=== PATIENT | male | born 1945 | race Caucasian/White ===

== ENCOUNTER 2017-08-25 13:37 | Observation (INO) ==
[2017-08-25] MEDS ORDERED: D5% in Water 1,000 ML IVC PRN (16:36)
[2017-08-25] MEDS ORDERED: *HR* Dextrose 50 % in Water (Syg) 50 ML SYRINGE IVP PRN (16:36)
[2017-08-25] MEDS ORDERED: Dextrose Gel 15 GM/37.5 ML TUBE PO PRN ×2 (16:36)
[2017-08-25] MEDS ORDERED: Naloxone 0.4 MG/ML INJ IVP PRN (16:47)
[2017-08-25] MEDS ORDERED: Acetaminophen 325 MG TABLET PO PRN (16:47)
[2017-08-25] MEDS ORDERED: traMADol 50 MG TABLET PO PRN (16:47)
--- NOTE | 2017-08-25 17:07 | Internal Med History&Physical ---
Date of Encounter: 08/25/17 Time of Encounter: 17:05 Internal Medicine - H&P: HPI Chief complaint: Dizziness Admitted From: Direct Admit (Dr. Maya - [facility]) Plans for Post Hospital Care: Home History of present illness: Mr. Fajardo is a 71 year old male who was told by his PCP Dr. Maya at [facility] to come for direct admission. Dr. Maya got in touch with me to notify me that patient was seen yesterday in clinic for routine follow up. He was being worked up and followed recently for iron deficiency anemia, intermittent episodes of dizziness/near syncope, diarrhea, hematochezia, and unintentional weight loss of 30+ pounds over last 4 months. He has been following up with cardiology. Patient had normal CTA carotids as outpatient recently. He had a normal stress test earlier this morning. He has poor health literacy and compliance, and he missed two recent outpatient GI appointments. PCP wants patient to get inpatient CT abdomen/pelvis and GI consult with possible colonscopy to work up GI issues and unintentional weight loss, with concern for malignancy. Patient is difficult to get history from. He gets agitated easily with repeat questioning. He has no complaints at this time. He states that he "feels good." He states issues with BRBPR, diarrhea, and dizziness/near syncope intermittently over last 4 months. He denies chest pain, SOB, headache, visual changes, nausea, vomiting, abdominal pain, or focal neurological deficits. Past Med Surg Social Fam HX - Past Medical History Attestation: Yes The following information was validated with the patient. Source: patient Medical history: diabetes, hypertension - Past Surgical History Surgical History: other (Right AKA) - Social History Smoking Status: Former smoker Drug use: marijuana - Family History Mother Hx Family Cardiac Disorders: Yes Hx Family Endocrine Disorder: Yes (DM) Internal Medicine - H&P: Meds Aspirin EC 81 mg PO DAILY 08/25/17 [History] Atorvastatin Calcium 20 mg PO DAILY 08/25/17 [History] Ferrous Sulfate [Iron] 325 mg PO DAILY 08/25/17 [History] Metformin HCl ER 500 mg PO DAILY 08/25/17 [History] 3 Allergy/AdvReac Type Severity Reaction Status Date / Time No Known Allergies Allergy Unverified 02/21/15 11:55 All Systems PM: A 10-system review of systems was performed and is negative for pertinent findings except as documented above in the HPI. - Constitutional Constitutional: fatigue, lethargy, malaise, weight loss, no anorexia, no chills , no fever(s), no weakness, no weight gain - EENT Eyes: no blurry vision, no diplopia, no loss of vision, no pain Ears: no decreased hearing, no ear pain Nose, mouth and throat: no dry mouth, no dysphagia, no epistaxis, no mouth pain , no nasal congestion, no nasal discharge, no neck pain, no sinus pain, no sore throat - Cardiovascular Cardiovascular ROS IM: lightheadedness, syncope, no chest pain, no diaphoresis, no dyspnea, no dyspnea on exertion, no edema, no irregular heart rhythm, no palpitations - Respiratory Respiratory: no cough, no hemoptysis, no wheezing, no chest congestion - Gastrointestinal Gastrointestinal: diarrhea, hematochezia, no abdominal pain, no constipation, no dysphagia, no heartburn, no hematemesis, no melena, no nausea, no vomiting - Genitourinary Genitourinary ROS male: no difficulty urinating, no dysuria, no hematuria, no urinary frequency - Musculoskeletal Musculoskeletal ROS IM: no arthralgias, no joint swelling, no muscle cramps, no muscle weakness, no myalgias - Integumentary Integumentary IM: no erythema, no rash, no skin ulcer, no jaundice - Neurological Neurological ROS: dizziness, weakness, no behavioral changes, no confusion, no focal weakness, no headache(s), no loss of vision, no vertigo - Psychiatric Psychiatric: no anxiety, no depression, no hallucinations - Endocrine Endocrine IM: no cold intolerance, no heat intolerance, no polydipsia, no polyphagia, no polyuria - Constitutional Vitals: Temp Pulse Resp BP Pulse Ox 98.3 F 90 17 164/78 96 08/25/17 14:13 08/25/17 14:13 08/25/17 14:13 08/25/17 14:13 08/25/17 14:13 General appearance: Present: A&O X 3, no acute distress, answers questions appropriately. Absent: cooperative, pleasant - Head Head exam: Present: atraumatic, normocephalic - Eye Eye exam: Present: EOMI, PERRL. Absent: conjunctival injection, nystagmus, scleral icterus - ENT ENT exam: Present: mucous membranes moist, normal external ear exam, normal oropharynx - Neck Neck exam general surgery: Present: supple, trachea midline. Absent: lymphadenopathy, tenderness, thyromegaly - Respiratory Respiratory exam: Present: CTAB. Absent: accessory muscle use, rales, rhonchi, wheezes Additional comments: Normal WOB - Cardiovascular Cardiovascular exam: Present: RRR, +S1, +S2. Absent: diastolic murmur, gallop, rubs, systolic murmur Additional comments: No LLE edema. - GI/Abdominal GI/Abdominal exam: Present: normal bowel sounds, soft. Absent: distended, hepatomegaly, mass, splenomegaly, tenderness - Extremities Exam Additional comments: Right AKA - Neurological Exam Neurological exam: Present: alert, CN II-XII intact, oriented X3, no focal deficits, strengths equal and symetr throughout. Absent: facial droop, speech deficit - Psychiatric Psychiatric exam: Present: normal affect, normal mood. Absent: anxious, depressed - Skin Skin exam: Present: dry, intact, warm. Absent: cyanosis, rash - Assessment and plan (1) Near syncope Current Visit: Yes Status: Acute Assessment and plan: Subacute issue, was being worked up as outpatient. Having some episodes of dizziness/near syncope when standing up too quick. Has been having generalized weakness/fatigue and unintentional weight loss of 30+ pounds over last 4 months. Also, with subacute history of intermittent diarrhea and hematochezia. Recently diagnosed with iron deficiency anemia. Last clinic Hgb = 8.2. Had carotid CTA recently, which was negative. Was following up with cardiology outpatient. Stress test completed earlier today showed no ischemia. [employer] physician Dr. Maay, who is PCP, wanted patient admitted for evalution of unintentional weight loss with CT abdomen/pelvis and GI consult for possible colonoscopy. Patient has poor health literacy and missed two outpatient GI appointments. Will admit for observation to general medical floor with telemetry. Strict bedrest for now, then up with assist if no futher syncopal episodes. Will repeat CMP and CBC now. Obtain hemoccult. Obtain CT abdomen/pelvis. Will consult GI for diarrhea, hematochezia, and need for possible colonoscopy. Repeat labwork in AM if necessary. (2) Dizziness Current Visit: Yes Status: Acute Assessment and plan: Continue workup as per above. (3) Anemia, iron deficiency Current Visit: Yes Status: Chronic Assessment and plan: Hgb = 8.2 on 08/24/17. Repeat CMC now as per above. Continue home ferrous sulfate. Transfuse if Hgb < 7 or worsening symptoms. Qualifiers: Iron deficiency anemia type: other iron deficiency Qualified Code(s): D50.8 - Other iron deficiency anemias (4) Diarrhea Current Visit: Yes Status: Chronic Assessment and plan: Continue workup as per above. GI consulted; appreciate input. Obtain hemoccult. Obtain CT abdomen/pelvis. Consider colonscopy. Qualifiers: Diarrhea type: unspecified type Qualified Code(s): R19.7 - Diarrhea, unspecified (5) Hematochezia Current Visit: Yes Status: Chronic Assessment and plan: Continue workup as per above. GI consulted; appreciate input. Obtain CBC now. Obtain hemoccult. Obtain CT abdomen/pelvis. Consider colonscopy. (6) Unintentional weight loss Current Visit: Yes Status: Chronic Assessment and plan: Continue workup as per above. GI consulted; appreciate input. Obtain hemoccult. Obtain CT abdomen/pelvis. Consider colonscopy. (7) Hyperlipidemia Current Visit: Yes Status: Chronic Assessment and plan: Continue home statin. Qualifiers: Hyperlipidemia type: mixed hyperlipidemia Qualified Code(s): E78.2 - Mixed hyperlipidemia (8) Type II diabetes mellitus Current Visit: Yes Status: Chronic Assessment and plan: Hold home metformin. Start accuchecks and low dose SSI QID AC/HS. Qualifiers: Diabetes mellitus superintendent terminal insulin use: without chcf use Diabetes mellitus complication status: without complication Qualified Code(s): E11.9 - Type 2 diabetes mellitus without complications (9) DVT prophylaxis Current Visit: Yes Status: Acute Assessment and plan: Start lovenox 40 mg SQ QD. - Time Spent With Patient Total time spent is greater than 50% in coordination of care (as documented) at patient's floor/unit and/or counseling patient: 25 - 35 minutes
[2017-08-25 17:10] LABS: Immature Granulocytes % 0.2 % (0-4); Mean Corpuscular HGB Conc 27.5 g/dL (31.6-35.5)
[2017-08-25 17:11] LABS: Basophils # 0.1 K/mcL (0.0-0.2); Basophils % 1.1 %; Eosinophils # 0.1 K/mcL (0.0-0.6); Eosinophils % 1.1 %; Hemoglobin 9.9 g/dL (12.9-16.9); Lymphocytes # 1.4 K/mcL (0.6-4.6); Lymphocytes % 31.1 %; Mean Corpuscular Hemoglobin 18.6 pg (28.0-33.3); Mean Corpuscular Volume 67.8 fL (83.0-100.0); Monocytes # 0.5 K/mcL (0.0-1.3); Monocytes % 11.5 %; Neutrophils # 2.4 K/mcL (1.6-8.9); Red Blood Count 5.31 M/mcL (4.19-5.50); Red Cell Distribution Width 29.3 % (11.5-14.5)
[2017-08-25 17:14] LABS: Platelet Count 92 K/mcL (140-400)
[2017-08-25 17:15] LABS: Anisocytosis 2+ (Not Present); Hypochromasia Present (Not Present); Microcytosis Present (Not Present); Platelet Estimate Slight Decrease (Normal)
[2017-08-25] MEDS: Aspirin Enteric Coated 81 MG Tablet PO SCH (17:16)
[2017-08-25] MEDS: Insulin LISPRO 300 UNITS/3 ML VIAL SQ SCH (17:21)
[2017-08-25 17:44] LABS: Alanine Aminotransferase 69 Units/L (7-52); Albumin 3.8 g/dL (3.5-5.7); Albumin/Globulin Ratio 1.1 (1.1-2.2); Alkaline Phosphatase 131 Units/L (34-104); Aspartate Amino Transferase 90 Units/L (13-39); BUN/Creatinine Ratio 17 (6-26); Bilirubin,Total 0.5 mg/dL (0.3-1.0); Blood Urea Nitrogen 12 mg/dL (8-23); Calcium 9.4 mg/dL (8.6-10.3); Carbon Dioxide 22 mEq/L (23-29); Chloride 109 mEq/L (98-107); Globulin 3.4 g/dL (2.4-3.5); Glucose 200 mg/dL (70-105); Osmolality,Calculated 291 (280-300); Potassium 4.2 mEq/L (3.5-5.1); Sodium 138 mEq/L (136-145); Total Protein 7.2 g/dL (6.4-8.9); eGFR For African Americans > 60 (> 60); eGFR For Non-African Americans > 60 (> 60)
[2017-08-25] MEDS: *HR* Enoxaparin 40 MG/0.4 ML SYRINGE SQ SCH (19:41)
[2017-08-25] MEDS ORDERED: Insulin LISPRO 300 UNITS/3 ML VIAL SQ SCH (21:00)
[2017-08-26 05:41] LABS: Mean Corpuscular Hemoglobin 18.9 pg (28.0-33.3)
[2017-08-26 05:44] LABS: Basophils % 0.7 %; Eosinophils # 0.1 K/mcL (0.0-0.6); Hematocrit 33.2 % (37.5-50.1); Hemoglobin 9.3 g/dL (12.9-16.9); Immature Granulocytes % 0.3 % (0-4); Lymphocytes % 33.8 %; Mean Corpuscular Volume 67.3 fL (83.0-100.0); Monocytes # 0.4 K/mcL (0.0-1.3); Monocytes % 13.4 %; Neutrophils # 1.5 K/mcL (1.6-8.9); Nucleated Red Blood Cells 0.7 /100 WBC (0); Red Blood Count 4.93 M/mcL (4.19-5.50); Red Cell Distribution Width 28.9 % (11.5-14.5); Segmented Neutrophils % 49.8 %
[2017-08-26 05:49] LABS: Lymphocytes # 1.1 K/mcL (0.6-4.6); Platelet Count 87 K/mcL (140-400)
[2017-08-26 06:03] LABS: Anisocytosis 2+ (Not Present); Hypochromasia Present (Not Present); Macrocytosis Present (Not Present)
[2017-08-26 06:04] LABS: BUN/Creatinine Ratio 18 (6-26); Blood Urea Nitrogen 12 mg/dL (8-23); Calcium 9.1 mg/dL (8.6-10.3); Carbon Dioxide 22 mEq/L (23-29); Chloride 112 mEq/L (98-107); Glucose 115 mg/dL (70-105); Osmolality,Calculated 291 (280-300); Platelet Estimate Decreased (Normal); Polychromasia 1+ (Not Present); Potassium 3.9 mEq/L (3.5-5.1); Sodium 140 mEq/L (136-145); eGFR For African Americans > 60 (> 60); eGFR For Non-African Americans > 60 (> 60)
[2017-08-26] MEDS: *HR* Enoxaparin 40 MG/0.4 ML SYRINGE SQ SCH (06:04)
[2017-08-26] MEDS: Aspirin Enteric Coated 81 MG Tablet PO SCH (08:23)
[2017-08-26] MEDS: Insulin LISPRO 300 UNITS/3 ML VIAL SQ SCH ×4 (08:24→22:28)
--- NOTE | 2017-08-26 12:23 | Gastroenterology Consult Note ---
<Irvin Ramirez Travon - Last Filed: 08/26/17 12:21> Date of Encounter: 08/26/17 Time of Encounter: 11:10 - Assessment and plan (1) Cirrhosis Status: Acute Assessment and plan: CT A/P shows cirrhosis with possible numerous tiny regenerative nodules, ill- defined 5.2 x 4.2 cm isodense to mildly hypodense area in the left lobe segment 4B may represent a dysplastic nodule. Check MRI, AFP, hepatitis profile. Unable to calculate MELD-Na, Child-Quinones, or DF. Check PT/INR. Qualifiers: Hepatic cirrhosis type: unspecified hepatic cirrhosis Ascites presence: without ascites Qualified Code(s): K74.60 - Unspecified cirrhosis of liver (2) Anemia, iron deficiency Status: Chronic Assessment and plan: Continue to monitor CBC and transfuse PRBC as needed. Plan for EGD and colonoscopy tomorrow. Clear liquid diet today, no red or purple. NPO at midnight. If unable tolerate NuLytely please use MiraLAX prep. If not clear by 6 AM, give 2 tap water enemas. Qualifiers: Iron deficiency anemia type: other iron deficiency Qualified Code(s): D50.8 - Other iron deficiency anemias (3) Diarrhea Status: Chronic Assessment and plan: Check GI panel and complete colonoscopy. Qualifiers: Diarrhea type: unspecified type Qualified Code(s): R19.7 - Diarrhea, unspecified (4) Unintentional weight loss Status: Chronic Assessment and plan: Concern for malignancy. Plan for EGD and colonoscopy. - Time Spent With Patient Total time spent is greater than 50% in coordination of care (as documented) at patient's floor/unit and/or counseling patient: GI History of Present Illness - Data of Consult Patient: new to practice Consult date: 08/26/17 Requesting Physician: Aguila Asher - Consult Narrative Reason for consult: unintentional weight loss, diarrhea, hematochezia, cirrhosis History of present illness: Mr. Fajardo is a 71 year old male with PMHx of who was told by his PCP Dr. [facility] at [facility] to come for direct admission. He was being worked up and followed recently for iron deficiency anemia, intermittent episodes of dizziness/near syncope, diarrhea, hematochezia, and unintentional weight loss of 35-40 pounds over last 4 months. He has missed two recent outpatient GI appointments. He reports issues with BRBPR, diarrhea, and dizziness/near syncope intermittently over last 4 months. He denies chest pain, SOB, headache, visual changes, nausea, vomiting, abdominal pain, or focal neurological deficits. We were consulted for possible colonscopy to work up GI issues and unintentional weight loss, with concern for malignancy. Hgb on admission 9.9 and Hgb 9.3 this AM. Procedures: None NSAIDs: ASA Anticoagulation: None Past Med Surg Social Fam HX - Past Medical History Medical history: diabetes, hypertension - Past Surgical History Surgical History: other (Right AKA) - Social History Smoking Status: Former smoker Drug use: marijuana - Family History Mother Hx Family Cardiac Disorders: Yes Hx Family Endocrine Disorder: Yes (DM) - Gastrointestinal Gastrointestinal: Present: as per HPI - Constitutional Constitutional: as per HPI - EENT Eyes: as per HPI Ears: Present: as per HPI Nose, mouth and throat: Present: as per HPI - Cardiovascular Cardiovascular ROS: Present: as per HPI - Respiratory Respiratory IM: Present: as per HPI - Genitourinary Genitourinary: Absent: change in color, Urinary frequency - Neurological ROS Neurological GI: Present: as per HPI - Hematologic/Lymphatic Hematologic/Lymphatic pediatric: Present: as per HPI - Musculoskeletal Musculoskeletal ROS GI: Present: as per HPI - Integumentary Integumentary GI: Present: as per HPI - Psychiatric ROS Psychiatric GI: Present: as per HPI - Endocrine Endocrine IM: Present: as per HPI - Constitutional Vitals: Temp Pulse Resp BP Pulse Ox 97.3 F L 88 16 104/68 97 08/26/17 10:42 08/26/17 10:42 08/26/17 10:42 08/26/17 10:42 08/26/17 10:42 General appearance: Present: cooperative, A&O X 3, no acute distress, answers questions appropriately - Head Head exam: Present: atraumatic, normocephalic - Eye Eye exam: Present: normal appearance, sclera anicteric - ENT ENT exam: Present: mucous membranes dry - Neck Neck exam general surgery: Present: normal inspection, trachea midline - Respiratory Respiratory exam: Present: CTAB. Absent: rales, rhonchi, wheezes - Cardiovascular Cardiovascular exam: Present: RRR, +S1, +S2 - GI/Abdominal GI/Abdominal exam: Present: soft, no peritoneal signs. Absent: distended, firm , guarding, tenderness - Rectal Rectal exam: Present: deferred - Extremities Exam Extremities exam: Present: warm - Neurological Exam Neurological exam: Present: no focal deficits - Psychiatric Psychiatric exam: Present: normal affect, normal mood - Skin Skin exam: Present: dry, intact, normal color, warm Results - Labs CBC & Chem 7: 08/26/17 05:19 08/26/17 05:19 Labs: Last Result Calcium 9.1 mg/dL (8.6-10.3) 08/26/17 05:19 Stool Occult Blood Positive (Negative) A 08/25/17 20:15 Entire Visit Hgb 9.3 g/dL (12.9-16.9) L 08/26/17 05:19 Hct 33.2 % (37.5-50.1) L 08/26/17 05:19 Total Bilirubin 0.5 mg/dL (0.3-1.0) 08/25/17 16:58 AST 90 Units/L (13-39) H 08/25/17 16:58 ALT 69 Units/L (7-52) H 08/25/17 16:58 - Impressions Impressions Abdomen/Pelvis CT 08/25/17 18:10 IMPRESSION: 1. Nodular shrunken cirrhotic appearing liver with possible numerous tiny regenerative nodules. 2. Ill-defined 5.2 x 4.2 cm isodense to mildly hypodense area in the left lobe segment 4B may represent a dysplastic nodule. Further evaluation with contrast-enhanced (not Eovist) MRI is recommended. 3. Splenomegaly. D/ / Isidoro Alex MD / Isidoro Alex MD Interpreting Provider: Isidoro Alex MD Consult Discharge Plan - Plan Additional Instructions: Must follow up in oncology clinic Referrals: Subhash Resendez [Other] - 09/12/17 1:00 pm (Please arrive 15 minutes early to appointment to complete paper work. Please bring photo ID and your insurance card with you to appointment.) Laureen Maya, [Primary Care Provider] - Maty Stark MD [Partnered Physician] - <Jesus Cameron - Last Filed: 08/31/17 06:05> Date of Encounter: 08/26/17 - Time Spent With Patient Total time spent is greater than 50% in coordination of care (as documented) at patient's floor/unit and/or counseling patient: GI History of Present Illness - Data of Consult Requesting Physician: Aguila Asher - Consult Narrative History of present illness: Mr. Fajardo is a 71 year old male - Constitutional Vitals: Temp Pulse Resp BP Pulse Ox 98.0 F 76 18 120/89 99 08/28/17 11:48 08/28/17 11:48 08/28/17 11:48 08/28/17 11:48 08/28/17 11:48 Results - Labs CBC & Chem 7: 08/28/17 04:28 08/28/17 04:28 Labs: Last Result Calcium 9.3 mg/dL (8.6-10.3) 08/28/17 04:28 Iron 25 mcg/dL (65-175) L 08/26/17 19:04 % Saturation 5 % (20-55) L 08/26/17 19:04 Transferrin 371 mg/dL (203-362) H 08/26/17 19:04 Stool Occult Blood Positive (Negative) A 08/25/17 20:15 Entire Visit Hgb 9.6 g/dL (12.9-16.9) L 08/28/17 04:28 Hct 34.5 % (37.5-50.1) L 08/28/17 04:28 PT 13.2 Seconds (9.4-12.1) H 08/26/17 12:33 Total Bilirubin 0.5 mg/dL (0.3-1.0) 08/25/17 16:58 AST 90 Units/L (13-39) H 08/25/17 16:58 ALT 69 Units/L (7-52) H 08/25/17 16:58 - ABG ABG results: PT/INR, D-dimer PT 13.2 Seconds (9.4-12.1) H 08/26/17 12:33 - Attending Attestation Unfortunate male with decompensated cirrhosis and 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 Profound weight loss. History of alcoholism and IVDA in past. Plan EGD and colonoscopy and check MRI abdomen and AFP. I have personally performed a face to face evaluation on this patient. I have reviewed and agree with the care plan. History and Exam by me shows:
[2017-08-26 13:15] LABS: INR 1.2; Prothrombin Time 13.2 Seconds (9.4-12.1)
[2017-08-26 14:14] LABS: Hepatitis A Antibody IgM Nonreactive (Nonreactive); Hepatitis B Core IgM Nonreactive (Nonreactive); Hepatitis B Surface Antigen Nonreactive (Nonreactive)
[2017-08-26 15:15] LABS: Hepatitis C Virus Antibody Reactive (Nonreactive)
--- NOTE | 2017-08-26 15:38 | Internal Med Progress Note ---
Date of Encounter: 08/26/17 Time of Encounter: 09:00 - Assessment and plan (1) Malignancy Current Visit: Yes Status: Suspected Assessment and plan: Concerning for malignancy. MRI results are as follows 1. Cirrhotic liver containing three LI-RADS LR-5 lesions (definitely hepatocellular carcinoma) as above. Recommend oncologic evaluation for potential treatment. 2. Additional arterially enhancing foci scattered throughout the liver measure up to 1.3 cm, meeting criteria for LI-RADS LR-3. The most likely considerations are dysplastic nodules or small hepatocellular carcinomas. 3. No findings of abdominal metastatic disease. 4. Findings of portal hypertension include dilation of the main portal vein, multiple venous collaterals, mild splenomegaly, and trace ascites. Additionally, there is suspected portal enteropathy and colopathy. 5. Cystic lesions without worrisome features in the pancreas, measuring up to 1.2 cm x 1.1 cm x 0.6 cm and likely branch duct intraductal papillary mucinous neoplasms. Recommend follow-up with pancreas protocol MRI or CT in 2 years as below. 6. 2.4 cm x 3.0 cm fusiform aneurysm of the infrarenal abdominal aortic, suspected to contain a fenestrated focal dissection flap superiorly. Recommend follow-up imaging in 3 years as below. Consult oncology- Spoke with oncologist who will see the patient in consultation GI- consulting concerning for malignancy, hematochezia and positive Hemoccult, planning EGD and colonoscopy in the am REMAIN NPO, start prep this afternoon Obtain iron studies Consider PRBC transfusion if hemoglobin less than 7 (2) Near syncope Current Visit: Yes Status: Acute Assessment and plan: Etiology unclear. Reporting episodic dizziness/near syncope with standing up too quickly. Maybe be related to his anemia but could also be related to his dehydration due to nausea, vomiting and diarrhea or a combination of these issues. He is noted to also have some carotid stenosis with bilateral carotid Dopplers revealing a 60-79% stenosis of the right bifurcation and a 60-79% stenosis of the left bifurcation Denying any dizziness at this time. He remains hemodynamically stable. Continue to monitor CBC reveals a stable anemia with an H&H of 9.3/33.2,, chemistries unremarkable Patient to have a stool which was Hemoccult positive, gastroenterology consulting, no gross bleeding noted. Diarrhea and hematochezia at [facility] for anemia. Patient appears to possibly have hepatocellular carcinoma. See MRI Repeat lab work in AM (3) Dizziness Current Visit: Yes Status: Acute Assessment and plan: see plan above (4) Anemia, iron deficiency Current Visit: Yes Status: Chronic Assessment and plan: Hgb stable today, Continue home ferrous sulfate. Transfuse if Hgb < 7 or worsening symptoms. Qualifiers: Iron deficiency anemia type: other iron deficiency Qualified Code(s): D50.8 - Other iron deficiency anemias (5) Diarrhea Current Visit: Yes Status: Chronic Assessment and plan: Continue workup as per above. GI consulted; appreciate input. Consider colonscopy d/t new concerns for malignancy; stool was Hemoccult positive Qualifiers: Diarrhea type: unspecified type Qualified Code(s): R19.7 - Diarrhea, unspecified (6) Hematochezia Current Visit: Yes Status: Chronic Assessment and plan: See plan above (7) Unintentional weight loss Current Visit: Yes Status: Chronic Assessment and plan: See plan above (8) DVT prophylaxis Current Visit: Yes Status: Acute Assessment and plan: Start lovenox 40 mg SQ QD. (9) Type II diabetes mellitus Current Visit: Yes Status: Chronic Assessment and plan: Continues to have elevated blood glucose Increase to medium sliding scale coverage Qualifiers: Diabetes mellitus long term care pharmacist insulin use: without nursing home use Diabetes mellitus complication status: without complication Qualified Code(s): E11.9 - Type 2 diabetes mellitus without complications (10) Hyperlipidemia Current Visit: Yes Status: Chronic Assessment and plan: Continue home statin. Qualifiers: Hyperlipidemia type: mixed hyperlipidemia Qualified Code(s): E78.2 - Mixed hyperlipidemia - Time Spent With Patient Total time spent is greater than 50% in coordination of care (as documented) at patient's floor/unit and/or counseling patient: Greater than 35 minutes - Subjective Interval history: Mr. Fajardo is a 71-year old male who has been admitted for a further workup of iron deficiency anemia, intermittent episodes of dizziness/near syncope, diarrhea, hematochezia, and unintentional weight loss of 30+ pounds over last 4 months. There is some concern for hepatocellular carcinoma with a CT scan showing a cirrhotic-appearing liver with possible numerous tiny regenerative nodules. Additionally, there is an ill-defined 5.2 x 4.2 cm isodense to mildly hypodense area in the left lobe segment IVb which may represent a dysplastic nodule. He is continuing to endorse nausea however is denying any vomiting or diarrhea today. He does report that he has a good appetite today. He is continued to have abdominal pain. Currently he is denying any dizziness. - Constitutional Vitals: Temp Pulse Resp BP Pulse Ox 97.3 F L 88 16 104/68 97 08/26/17 10:42 08/26/17 10:42 08/26/17 10:42 08/26/17 10:42 08/26/17 10:42 General appearance: Present: A&O X 3, no acute distress, answers questions appropriately. Absent: cooperative, pleasant - Eye Eye exam: Present: conjuntiva pink, sclera anicteric - Respiratory Respiratory exam: Present: CTAB. Absent: accessory muscle use, rales, rhonchi, wheezes - Cardiovascular Cardiovascular exam: Present: RRR, +S1, +S2. Absent: diastolic murmur, gallop, rubs, systolic murmur - GI/Abdominal GI/Abdominal exam: Present: normal bowel sounds, soft, no peritoneal signs. Absent: distended, tenderness - Extremities Exam Extremities exam: Present: warm, radial pulses palpable and symmetrical. Absent : calf tenderness, cyanotic, pedal edema - Neurological Exam Neurological exam: Present: alert, oriented X3. Absent: facial droop, speech deficit - Skin Skin exam: Present: dry, intact Internal Medicine: Result - Labs CBC & Chem 7: 08/26/17 05:19 08/26/17 05:19 Labs: Short CBC 08/25/17 08/26/17 Range/Units 16:58 05:19 WBC 4.4 3.1 L (4.3-11.1) K/mcL Hgb 9.9 L 9.3 L (12.9-16.9) g/dL Hct 36.0 L 33.2 L (37.5-50.1) % Plt Count 92 L 87 L (140-400) K/mcL Neutrophils # 2.4 1.5 L (1.6-8.9) K/mcL BMP 08/25/17 08/26/17 16:58 05:19 Sodium 138 140 Potassium 4.2 3.9 Chloride 109 H 112 H Carbon Dioxide 22 L 22 L BUN 12 12 Creatinine 0.69 L 0.65 L Glucose 200 H 115 H Calcium 9.4 9.1 Liver Function 08/25/17 Range/Units 16:58 Total Bilirubin 0.5 (0.3-1.0) mg/dL AST 90 H (13-39) Units/L ALT 69 H (7-52) Units/L Alkaline Phosphatase 131 H (34-104) Units/L Albumin 3.8 (3.5-5.7) g/dL - ABG Interpretation ABG results: PT/INR, D-dimer PT 13.2 Seconds (9.4-12.1) H 08/26/17 12:33 - Prior EKG Data EKG comments: 08/26/17 15:39 Impressions Abdomen/Pelvis CT 08/25/17 18:10 IMPRESSION: 1. Nodular shrunken cirrhotic appearing liver with possible numerous tiny regenerative nodules. 2. Ill-defined 5.2 x 4.2 cm isodense to mildly hypodense area in the left lobe segment 4B may represent a dysplastic nodule. Further evaluation with contrast-enhanced (not Eovist) MRI is recommended. 3. Splenomegaly. D/ / Isidoro Alex MD / Isidoro Alex MD Interpreting Provider: Isidoro Alex MD Abdomen MRI 08/26/17 10:44 IMPRESSION: 1. Cirrhotic liver containing three LI-RADS LR-5 lesions (definitely hepatocellular carcinoma) as above. Recommend oncologic evaluation for potential treatment. 2. Additional arterially enhancing foci scattered throughout the liver measure up to 1.3 cm, meeting criteria for LI-RADS LR-3. The most likely considerations are dysplastic nodules or small hepatocellular carcinomas. 3. No findings of abdominal metastatic disease. 4. Findings of portal hypertension include dilation of the main portal vein, multiple venous collaterals, mild splenomegaly, and trace ascites. Additionally, there is suspected portal enteropathy and colopathy. 5. Cystic lesions without worrisome features in the pancreas, measuring up to 1.2 cm x 1.1 cm x 0.6 cm and likely branch duct intraductal papillary mucinous neoplasms. Recommend follow-up with pancreas protocol MRI or CT in 2 years as below. 6. 2.4 cm x 3.0 cm fusiform aneurysm of the infrarenal abdominal aortic, suspected to contain a fenestrated focal dissection flap superiorly. Recommend follow-up imaging in 3 years as below. RECOMMENDATIONS: Managing Incidental Pancreatic Cysts <80 years at presentation, 0.5 cm to <1.5 cm 65-79 years at presentation: Pancreas protocol MRI (or CT) in 2 years Reference: Catherine et al. Management of incidental pancreatic cysts: a white paper of the ACR Incidental Findings Committee. J Am Kiesha Radiol 2017;14:911-923. Managing Abdominal Aortic Aneurysms 3.0-3.4 cm: Every 3 years. Reference: J Vasc Surg. 2009 Feb;50(4 Suppl):S2-49 D/ / Irvin Mejias MD / Irvin Mejias MD Interpreting Provider: Irvin Mejias MD - Impressions Impressions Abdomen/Pelvis CT 08/25/17 18:10 IMPRESSION: 1. Nodular shrunken cirrhotic appearing liver with possible numerous tiny regenerative nodules. 2. Ill-defined 5.2 x 4.2 cm isodense to mildly hypodense area in the left lobe segment 4B may represent a dysplastic nodule. Further evaluation with contrast-enhanced (not Eovist) MRI is recommended. 3. Splenomegaly. D/ / Isidoro Alex MD / Isidoro Alex MD Interpreting Provider: Isidoro Alex MD Abdomen MRI 08/26/17 10:44 IMPRESSION: 1. Cirrhotic liver containing three LI-RADS LR-5 lesions (definitely hepatocellular carcinoma) as above. Recommend oncologic evaluation for potential treatment. 2. Additional arterially enhancing foci scattered throughout the liver measure up to 1.3 cm, meeting criteria for LI-RADS LR-3. The most likely considerations are dysplastic nodules or small hepatocellular carcinomas. 3. No findings of abdominal metastatic disease. 4. Findings of portal hypertension include dilation of the main portal vein, multiple venous collaterals, mild splenomegaly, and trace ascites. Additionally, there is suspected portal enteropathy and colopathy. 5. Cystic lesions without worrisome features in the pancreas, measuring up to 1.2 cm x 1.1 cm x 0.6 cm and likely branch duct intraductal papillary mucinous neoplasms. Recommend follow-up with pancreas protocol MRI or CT in 2 years as below. 6. 2.4 cm x 3.0 cm fusiform aneurysm of the infrarenal abdominal aortic, suspected to contain a fenestrated focal dissection flap superiorly. Recommend follow-up imaging in 3 years as below. RECOMMENDATIONS: Managing Incidental Pancreatic Cysts <80 years at presentation, 0.5 cm to <1.5 cm 65-79 years at presentation: Pancreas protocol MRI (or CT) in 2 years Reference: Catherine et al. Management of incidental pancreatic cysts: a white paper of the ACR Incidental Findings Committee. J Am Kiesha Radiol 2017;14:[id number]. Managing Abdominal Aortic Aneurysms 3.0-3.4 cm: Every 3 years. Reference: J Vasc Surg. 2009 Feb;50(4 Suppl):S2-49 D/ / Irvin Mejias MD / Irvin Mejias MD Interpreting Provider: Irvin Mejias MD Consult Discharge Plan - Plan Referrals: Subhash Resendez [Other] - 09/12/17 1:00 pm (Please arrive 15 minutes early to appointment to complete paper work. Please bring photo ID and your insurance card with you to appointment.) Laureen Maya, [Primary Care Provider] -
[2017-08-26] MEDS ORDERED: Isovue-370 500 ML INFUS..BTL IV ONE (16:09)
[2017-08-26] MEDS ORDERED: 0.9 % Sodium Chloride 1,000 ML IVC SCH (16:15)
[2017-08-26] MEDS ORDERED: SODIUM CHLORIDE/NAHCO3/KCL/PEG 4,000 ML SOLN.RECON PO ONE (17:00)
[2017-08-26] MEDS ORDERED: Ondansetron 4 MG/2 ML VIAL IVP PRN (18:10)
[2017-08-26 19:37] LABS: % Iron Saturation 5 % (20-55); Iron 25 mcg/dL (65-175); Transferrin 371 mg/dL (203-362)
[2017-08-27 05:34] LABS: Basophils % 0.8 %; Eosinophils # 0.1 K/mcL (0.0-0.6); Eosinophils % 2.4 %; Hematocrit 32.9 % (37.5-50.1); Hemoglobin 9.1 g/dL (12.9-16.9); Lymphocytes # 0.8 K/mcL (0.6-4.6); Lymphocytes % 32.4 %; Mean Corpuscular HGB Conc 27.7 g/dL (31.6-35.5); Mean Corpuscular Hemoglobin 18.8 pg (28.0-33.3); Monocytes # 0.3 K/mcL (0.0-1.3); Monocytes % 13.4 %; Neutrophils # 1.3 K/mcL (1.6-8.9); Nucleated Red Blood Cells 0.8 /100 WBC (0); Red Blood Count 4.84 M/mcL (4.19-5.50); Red Cell Distribution Width 28.8 % (11.5-14.5)
[2017-08-27 05:40] LABS: Platelet Count 89 K/mcL (140-400)
[2017-08-27 05:49] LABS: BUN/Creatinine Ratio 13 (6-26); Blood Urea Nitrogen 8 mg/dL (8-23); Carbon Dioxide 23 mEq/L (23-29); Chloride 112 mEq/L (98-107); Glucose 106 mg/dL (70-105); Osmolality,Calculated 287 (280-300); Potassium 3.9 mEq/L (3.5-5.1); Sodium 139 mEq/L (136-145); eGFR For African Americans > 60 (> 60); eGFR For Non-African Americans > 60 (> 60)
[2017-08-27 06:03] LABS: Anisocytosis 3+ (Not Present); Hypochromasia Present (Not Present); Platelet Estimate Decreased (Normal)
[2017-08-27 06:04] LABS: Polychromasia 1+ (Not Present)
[2017-08-27] MEDS: *HR* Enoxaparin 40 MG/0.4 ML SYRINGE SQ SCH (06:05)
[2017-08-27] MEDS ORDERED: Lidocaine -MPF 2% 2 ML VIAL ONE (07:21)
--- NOTE | 2017-08-27 07:28 | Anesthesia Evaluation PreOp ---
Date of Encounter: 08/27/17 Time of Encounter: 08:25 - Past History Planned Operation: EGD, Colonoscopy Cardiac History: HTN, Hyperlipidemia, Other (PAD, Daryn ICA 60-79% stenosis) Pulmonary History: Denies Any Significant HX [employer] [place] History: Other (Dizziness, near syncopy) Other Medical History: Diabetes Type II, Other (Unintended weight loss, diarrhea , anemia) Anesthesia History: No Prior Anesthetic Complications, Past Anesthesia Alcohol Use: none Drug use: marijuana Medications and Allergies Aspirin 81 mg PO DAILY 08/25/17 [History] Atorvastatin Calcium [Lipitor] 20 mg PO HS 08/25/17 [History] Ferrous Sulfate [Iron] 325 mg PO DAILY 08/25/17 [History] Metformin HCl [Metformin HCl ER] 500 mg PO DAILY 08/25/17 [History] 3 Allergy/AdvReac Type Severity Reaction Status Date / Time No Known Allergies Allergy Verified 08/26/17 06:59 - Meds/Allergy Pre-op Review Medications Reviewed: Yes Allergies Reviewed: Yes Beta Blockers on Current Med List: No Anesthesia Results - Labs 08/27/17 05:10 08/27/17 05:10 - Imaging Additional studies: Stress test 08/25/2017: * Resting ECG demonstrated normal sinus rhythm, probable first degree AVB with LBBB and PVCs. * Pharmacologic stress ECG is negative for ischemia at level of heart rate achieved. * Rare PVCs during stress. * Patient had no chest pain during stress. Hemodynamic responses * Low blood pressures to start, 98/66 mmHg. Normal blood pressure response to pharmacologic infusion. Study Quality * Study quality is average. Gated EF % * Gated EF = 50%. Left Ventricle * The left ventricle is not dilated. TID * No evidence of transient ischemic dilatation. NORMALS * Normal wall motion. PERFUSION * Small sized, mild to moderate intensity fixed perfusion defect involving the apical inferior wall. * Other segments demonstrate normal rest and stress perfusion. Anesthesia Exam Vital Signs/O2 Sat/Glucose, Most Recent Temp Pulse Resp BP Pulse Ox 97.9 F 89 16 97/61 98 08/27/17 07:09 08/27/17 07:09 08/27/17 07:09 08/27/17 07:09 08/27/17 07:09 Blood Glucose* 114 Weight: 70 kg BMI 25 - HEENT Mallampati: I Teeth: Missing - [employer] [place] LOC: Oriented - Cardiac Rhythm: Regular - Pulmonary Breath Sounds: bilateral Clear Anesthesia Assess/Plan ASA Score: 3 Modified Stovall Scale for Level of Consciousness: Anixous, agitated or restless Anesthetic Plan: MAC Monitoring Plan: Standard Monitors Recovery Plan: Other Anes Supervising Prov Stmt: Patient informed and consented. Risks, benefits, and alternatives discussed. Patient wishes to proceed.
[2017-08-27] MEDS ORDERED: *HR* FentaNYL (PF) 100 MCG/2 ML VIAL ONE (07:41)
[2017-08-27] MEDS ORDERED: *HR* PHENYLEPHRINE 1,000 MCG/10 ML SYRINGE IVP ONE (07:53)
[2017-08-27] MEDS ORDERED: *HR* EPINEPHrine 1 MG/ML AMPUL ONE (07:54)
--- NOTE | 2017-08-27 08:17 | Internal Med Progress Note ---
Date of Encounter: 08/27/17 Time of Encounter: 08:00 - Assessment and plan (1) Malignancy Current Visit: Yes Status: Suspected Assessment and plan: FINDINGS: LOWER CHEST: [place] dependent atelectasis in the lower lobes. Normal heart size. No pleural nor pericardial effusions. LIVER: Cirrhotic morphology. Minimal underlying steatosis. Suspicious focal lesions as below. Additional scattered foci of arterial enhancement without washout or capsule formation, measuring up to 1.3 cm in greatest dimension (LI-RADS LR-3). Diffuse nodularity best seen on delayed postcontrast sequence, suggesting regenerating nodules. - Segment 4b: 5.5 cm x 4.3 cm multilobulated lesion with heterogeneous but near diffuse arterial enhancement, washout, and capsule formation (LI-RADS LR-5) - Margin of segments 4b and 5: 2.9 cm x 2.9 cm lesion with heterogeneous but near diffuse arterial enhancement, heterogeneous washout, and capsule formation (LI-RADS LR-5) - Segment 5: 1.4 cm x 1.2 cm lesion with heterogeneous but near diffuse arterial enhancement, washout, and capsule formation (LI-RADS LR-5) GALLBLADDER/BILE DUCTS: Layering biliary sludge the gallbladder lumen without findings of cholelithiasis or acute cholecystitis. No intrahepatic nor extrahepatic dilatation. PANCREAS: Classic duct configuration without dilation. Moderate parenchymal atrophy. 0.9 cm x 0.6 cm x 1.0 cm simple cystic lesion in the head, and 1.0 cm x 1.1 cm x 0.6 cm lesion in the body with a thin septation. SPLEEN: Mildly enlarged. 1.2 cm x 1.1 cm avidly enhancing lesion with T2 intermediate signal, most likely a hamartoma or hemangioma. ADRENAL GLANDS: Normal. KIDNEYS: Bilateral simple cysts measuring up to 2.4 cm (Bosniak category 1). GI/BOWEL: Normal course and caliber of the stomach, small bowel, and colon without obstruction. Areas of suspected edematous wall thickening in the small bowel and right hemicolon. PELVIS: Not included. PERITONEUM/RETROPERITONEUM: No abdominal lymphadenopathy. Trace free intraperitoneal fluid. VESSELS: Normal variant direct origin of the common hepatic artery from the abdominal aorta adjacent to the celiac artery. Normal variant accessory right renal artery. Fusiform aneurysmal dilation of the infrarenal abdominal aorta, measuring up to 2.4 cm x 3.0 cm. Suspected fenestrated focal dissection flap in the superior portion of the aneurysm. Moderate to severe atherosclerosis. Patent portal and hepatic veins and inferior vena cava. Dilation of the main portal vein. Paraesophageal, esophageal, gastric, and paragastric varices. Recanalization of the coronary and paraumbilical veins. SOFT TISSUES/BONES: Small fat containing umbilical hernia. No suspicious focal marrow lesions. Multilevel degenerative disc disease. MR/MR abdomen wo/w con IMPRESSION: 1. Cirrhotic liver containing three LI-RADS LR-5 lesions (definitely hepatocellular carcinoma) as above. Recommend oncologic evaluation for potential treatment. 2. Additional arterially enhancing foci scattered throughout the liver measure up to 1.3 cm, meeting criteria for LI-RADS LR-3. The most likely considerations are dysplastic nodules or small hepatocellular carcinomas. 3. No findings of abdominal metastatic disease. 4. Findings of portal hypertension include dilation of the main portal vein, multiple venous collaterals, mild splenomegaly, and trace ascites. Additionally, there is suspected portal enteropathy and colopathy. 5. Cystic lesions without worrisome features in the pancreas, measuring up to 1.2 cm x 1.1 cm x 0.6 cm and likely branch duct intraductal papillary mucinous neoplasms. Recommend follow-up with pancreas protocol MRI or CT in 2 years as below. 6. 2.4 cm x 3.0 cm fusiform aneurysm of the infrarenal abdominal aortic, suspected to contain a fenestrated focal dissection flap superiorly. Recommend follow-up imaging in 3 years as below. FINDINGS: Lower Chest: No focal consolidation. Emphysema. Organs: There is a nodular shrunken cirrhotic appearing liver. The absence of IV contrast limits evaluation for masses such as hepatocellular carcinoma. Generalized ill-defined internal hypodense nodularity may reflect multiple regenerative nodules. The segment 4B there is an ill-defined almost isodense to slightly hypodense 5.2 x 4.2 cm nodule which could be a large dysplastic nodule. There is splenomegaly with spleen measuring 15 cm cranial caudally. Gallbladder is contracted. There is either gallbladder wall edema or some pericholecystic fluid. There is 2.3 cm left renal cyst in the lateral midpole. No adrenal mass. Pancreas grossly normal. GI/Bowel: There is limited evaluation due to absence of oral contrast. Small sliding hiatal hernia noted. No obvious gastric lesions. Normal caliber small bowel showing no focal lesions. Normal appendix. Sigmoid diverticulosis. No acute process in the colon. Pelvis: Urinary bladder grossly normal. Mild prostate hypertrophy with some calcifications. No suspicious pelvic mass. Peritoneum/Retroperitoneum: No ascites. No significant lymphadenopathy. At the level of L3-L4 disc space there is fusiform dilatation of the abdominal aorta measuring 2.8 cm in AP diameter. More proximally the infrarenal abdominal aorta measures 2.0 cm in AP diameter and therefore finding does not meet criteria for aneurysm. Bones/Soft Tissues: Diffuse degenerative changes. There is right inguinal hernia containing nonobstructed ileum and fat. CT/CT abd pelvis wo no iv no oral IMPRESSION: 1. Nodular shrunken cirrhotic appearing liver with possible numerous tiny regenerative nodules. 2. Ill-defined 5.2 x 4.2 cm isodense to mildly hypodense area in the left lobe segment 4B may represent a dysplastic nodule. Further evaluation with contrast-enhanced (not Eovist) MRI is recommended. 3. Splenomegaly. Endoscopy 08/27/17 EGD - Grade 2 varices were found in the lower third of the esophagus -1 supervision also with no bleeding and no stigmata of recent bleedingto - stenosis was found moderate to severe - Guerrero's esophagus in the lower third -Portal hypertensive gastropathy -Erosive lesions in the second portion of the duodenum -Mild inflammation characterized by edema of the gastric antrum. Biopsies were taken with a cold forceps for histology. Colonoscopy - 15 mm polyp was found in the sigmoid colon, which was pedunculated. The polyp was removed with a heart snare with complete retrieval and resection. -Nonbleeding internal hemorrhoids, grade 2 Plan: #1 following AFP #2 Trend CBC #3 pending oncology consultation for liver mass (2) Near syncope Current Visit: Yes Status: Acute Assessment and plan: Etiology unclear. Reporting episodic dizziness/near syncope with standing up too quickly. (3) Dizziness Current Visit: Yes Status: Acute Assessment and plan: Resolved (4) Anemia, iron deficiency Current Visit: Yes Status: Chronic Assessment and plan: Hemoglobin stable Qualifiers: Iron deficiency anemia type: other iron deficiency Qualified Code(s): D50.8 - Other iron deficiency anemias (5) Diarrhea Current Visit: Yes Status: Chronic Qualifiers: Diarrhea type: unspecified type Qualified Code(s): R19.7 - Diarrhea, unspecified (6) Hematochezia Current Visit: Yes Status: Chronic Assessment and plan: Likely from hemorrhoids (7) Unintentional weight loss Current Visit: Yes Status: Chronic (8) Type II diabetes mellitus Current Visit: Yes Status: Chronic Qualifiers: Diabetes mellitus manager intermediate insulin use: without manager intermediate use Diabetes mellitus complication status: without complication Qualified Code(s): E11.9 - Type 2 diabetes mellitus without complications (9) Hyperlipidemia Current Visit: Yes Status: Chronic Qualifiers: Hyperlipidemia type: mixed hyperlipidemia Qualified Code(s): E78.2 - Mixed hyperlipidemia (10) DVT prophylaxis Current Visit: Yes Status: Acute - Time Spent With Patient Total time spent is greater than 50% in coordination of care (as documented) at patient's floor/unit and/or counseling patient: 25 - 35 minutes - Subjective Interval history: Patient returns from endoscopy. States. GI advised to resume diet - Constitutional Vitals: Temp Pulse Resp BP Pulse Ox 97.9 F 89 16 97/61 98 08/27/17 07:09 08/27/17 07:09 08/27/17 07:09 08/27/17 07:09 08/27/17 07:09 General appearance: Present: A&O X 3, no acute distress, answers questions appropriately. Absent: cooperative, pleasant Exam: Physical exam Gen: Comfortable, laying in bed, in no visible distress HEENT: Normocephalic, atraumatic. No conjunctival icterus. Moist oral mucosa. Neck: Supple Lungs: Clear to auscultation, no foreign sounds Heart: Normal S1-S2, no murmurs rubs or gallops Abdomen: Normoactive bowel sounds, no guarding rigidity or tenderness Extremities: No edema clubbing or cyanosis Neuro: Alert oriented 3, no focal deficits Skin: No skin lesions Internal Medicine: Result - Labs CBC & Chem 7: 08/27/17 05:10 08/27/17 05:10 Labs: Short CBC 08/27/17 Range/Units 05:10 WBC 2.5 L (4.3-11.1) K/mcL Hgb 9.1 L (12.9-16.9) g/dL Hct 32.9 L (37.5-50.1) % Plt Count 89 L (140-400) K/mcL Neutrophils # 1.3 L (1.6-8.9) K/mcL BMP 08/27/17 05:10 Sodium 139 Potassium 3.9 Chloride 112 H Carbon Dioxide 23 BUN 8 Creatinine 0.61 L Glucose 106 H Calcium 9.0 - ABG Interpretation ABG results: PT/INR, D-dimer PT 13.2 Seconds (9.4-12.1) H 08/26/17 12:33 - Impressions Impressions Abdomen MRI 08/26/17 10:44 IMPRESSION: 1. Cirrhotic liver containing three LI-RADS LR-5 lesions (definitely hepatocellular carcinoma) as above. Recommend oncologic evaluation for potential treatment. 2. Additional arterially enhancing foci scattered throughout the liver measure up to 1.3 cm, meeting criteria for LI-RADS LR-3. The most likely considerations are dysplastic nodules or small hepatocellular carcinomas. 3. No findings of abdominal metastatic disease. 4. Findings of portal hypertension include dilation of the main portal vein, multiple venous collaterals, mild splenomegaly, and trace ascites. Additionally, there is suspected portal enteropathy and colopathy. 5. Cystic lesions without worrisome features in the pancreas, measuring up to 1.2 cm x 1.1 cm x 0.6 cm and likely branch duct intraductal papillary mucinous neoplasms. Recommend follow-up with pancreas protocol MRI or CT in 2 years as below. 6. 2.4 cm x 3.0 cm fusiform aneurysm of the infrarenal abdominal aortic, suspected to contain a fenestrated focal dissection flap superiorly. Recommend follow-up imaging in 3 years as below. RECOMMENDATIONS: Managing Incidental Pancreatic Cysts <80 years at presentation, 0.5 cm to <1.5 cm 65-79 years at presentation: Pancreas protocol MRI (or CT) in 2 years Reference: Catherine et al. Management of incidental pancreatic cysts: a white paper of the ACR Incidental Findings Committee. J Am Kiesha Radiol 2017;14:911-923. Managing Abdominal Aortic Aneurysms 3.0-3.4 cm: Every 3 years. Reference: J Vasc Surg. 2008;50(4 Suppl):S2-49 D/ / Irvin Mejias MD / Irvin Mejias MD Interpreting Provider: Irvin Mejias MD Chest CT 08/26/17 16:09 IMPRESSION: 1. 1.7 cm right hilar lymph node, which is nonspecific, and may be reactive or metastatic. 2. No evidence of pulmonary metastatic disease. 3. Cirrhosis with hepatic masses and evidence of portal hypertension. These findings were evaluated on the MR abdomen obtained earlier the same date. 4. Nearly occlusive proximal left subclavian artery stenosis. D/ / 08/26/2017 18:26:48 Cornell Torres MD / silvana Interpreting Provider: Cornell Torres MD Consult Discharge Plan - Plan Referrals: Subhash Resendez [Other] - 09/12/17 1:00 pm (Please arrive 15 minutes early to appointment to complete paper work. Please bring photo ID and your insurance card with you to appointment.) Laureen Maya, [Primary Care Provider] -
[2017-08-27] MEDS: Insulin LISPRO 300 UNITS/3 ML VIAL SQ SCH ×4 (13:04→20:54)
--- NOTE | 2017-08-27 13:16 | Anesthesia Evaluation Post Op ---
Date of Encounter: 08/27/17 Time of Encounter: 09:15 Notes: Patient's vital signs have been reviewed. Patient is stable postoperatively and has adequately recovered from anesthesia. Patient is determined to have stable airway patency and respiratory function including respiratory rate and oxygen saturation. Patient has a stable heart rate, blood pressure and adequate hydration. Patients mental status is acceptable. Patients temperature is appropriate. Pain and nausea are adequately controlled. - Discharge PostOp Status: Transfer Patient to floor
[2017-08-28 04:49] LABS: Basophils % 0.7 %; Eosinophils # 0.1 K/mcL (0.0-0.6); Eosinophils % 2.4 %; Hematocrit 34.5 % (37.5-50.1); Hemoglobin 9.6 g/dL (12.9-16.9); Lymphocytes % 34.4 %; Mean Corpuscular HGB Conc 27.8 g/dL (31.6-35.5); Mean Corpuscular Hemoglobin 18.9 pg (28.0-33.3); Monocytes # 0.3 K/mcL (0.0-1.3); Monocytes % 10.4 %; Neutrophils # 1.5 K/mcL (1.6-8.9); Red Blood Count 5.07 M/mcL (4.19-5.50); Red Cell Distribution Width 28.7 % (11.5-14.5); Segmented Neutrophils % 52.1 %
[2017-08-28 05:14] LABS: Platelet Count 87 K/mcL (140-400)
[2017-08-28 05:15] LABS: BUN/Creatinine Ratio 18 (6-26); Blood Urea Nitrogen 12 mg/dL (8-23); Calcium 9.3 mg/dL (8.6-10.3); Carbon Dioxide 25 mEq/L (23-29); Chloride 110 mEq/L (98-107); Glucose 110 mg/dL (70-105); Osmolality,Calculated 290 (280-300); Sodium 140 mEq/L (136-145); eGFR For African Americans > 60 (> 60); eGFR For Non-African Americans > 60 (> 60)
[2017-08-28 05:16] LABS: Anisocytosis 1+ (Not Present); Hypochromasia Present (Not Present); Platelet Estimate Decreased (Normal); Poikilocytosis 1+ (Not Present)
[2017-08-28] MEDS: *HR* Enoxaparin 40 MG/0.4 ML SYRINGE SQ SCH (05:44)
--- NOTE | 2017-08-28 08:35 | Internal Med Progress Note ---
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 Plan Consult oncology. He will benefit from a CT-guided biopsy of the liver but will consult with oncology. (2) Near syncope Current Visit: Yes Status: Resolved (3) Dizziness Current Visit: Yes Status: Resolved (4) Anemia, iron deficiency Current Visit: Yes Status: Chronic Assessment and plan: Activity related to liver disease (5) Diarrhea Current Visit: Yes Status: Resolved Qualifiers: Diarrhea type: unspecified type Qualified Code(s): R19.7 - Diarrhea, unspecified (6) Hematochezia Current Visit: Yes Status: Resolved (7) Type II diabetes mellitus Current Visit: Yes Status: Chronic Qualifiers: Diabetes mellitus custodial insulin use: without custodial use Diabetes mellitus complication status: without complication Qualified Code(s): E11.9 - Type 2 diabetes mellitus without complications (8) Hyperlipidemia Current Visit: Yes Status: Chronic Qualifiers: Hyperlipidemia type: mixed hyperlipidemia Qualified Code(s): E78.2 - Mixed hyperlipidemia (9) DVT prophylaxis Current Visit: Yes Status: Acute - Time Spent With Patient Total time spent is greater than 50% in coordination of care (as documented) at patient's floor/unit and/or counseling patient: 25 - 35 minutes - Subjective Interval history: No events overnight, no new complaints. - Constitutional Vitals: Temp Pulse Resp BP Pulse Ox 98.3 F 70 16 146/75 95 08/28/17 07:51 08/28/17 07:51 08/28/17 07:51 08/28/17 07:51 08/28/17 07:51 General appearance: Present: A&O X 3, no acute distress, answers questions appropriately. Absent: cooperative, pleasant Exam: Physical exam Gen: Comfortable, laying in bed, in no visible distress HEENT: Normocephalic, atraumatic. No conjunctival icterus. Moist oral mucosa. Neck: Supple Lungs: Clear to auscultation, no foreign sounds Heart: Normal S1-S2, no murmurs rubs or gallops Abdomen: Normoactive bowel sounds, no guarding rigidity or tenderness Extremities: No edema clubbing or cyanosis. Right right [id number] amputation Neuro: Alert oriented 3, no focal deficits Skin: No skin lesions Internal Medicine: Result - Labs CBC & Chem 7: 08/28/17 04:28 08/28/17 04:28 Labs: Short CBC 08/28/17 Range/Units 04:28 WBC 2.9 L (4.3-11.1) K/mcL Hgb 9.6 L (12.9-16.9) g/dL Hct 34.5 L (37.5-50.1) % Plt Count 87 L (140-400) K/mcL Neutrophils # 1.5 L (1.6-8.9) K/mcL BMP 08/28/17 04:28 Sodium 140 Potassium 4.0 Chloride 110 H Carbon Dioxide 25 BUN 12 Creatinine 0.68 L Glucose 110 H Calcium 9.3 - ABG Interpretation ABG results: PT/INR, D-dimer PT 13.2 Seconds (9.4-12.1) H 08/26/17 12:33 Consult Discharge Plan - Plan Referrals: Subhash Resendez [Other] - 09/12/17 1:00 pm (Please arrive 15 minutes early to appointment to complete paper work. Please bring photo ID and your insurance card with you to appointment.) Laureen Maya, [Primary Care Provider] -
--- NOTE | 2017-08-28 09:31 | Discharge Summary ---
- NOTES TO OUTPATIENT PROVIDER Notes to Outpatient Provider: He must follow-up with Dr. Nelson in Oncology Clinic. Orders not resulted at time of discharge: Pending orders 08/26/17 12:33 AFP Tumor Marker Non- Routine 08/27/17 09:00 Surgical Pathology [PTH] Routine 08/28/17 08:21 Hepatitis C Qnt Reflx Genotype Stat Date of Encounter: 08/28/17 Time of Encounter: 09:30 - Discharge Diagnosis (1) Malignancy Priority: Primary Status: Suspected Comments: FINDINGS: LOWER CHEST: Floyd dependent atelectasis in the lower lobes. Normal heart size. No pleural nor pericardial effusions. LIVER: Cirrhotic morphology. Minimal underlying steatosis. Suspicious focal lesions as below. Additional scattered foci of arterial enhancement without washout or capsule formation, measuring up to 1.3 cm in greatest dimension (LI-RADS LR-3). Diffuse nodularity best seen on delayed postcontrast sequence, suggesting regenerating nodules. - Segment 4b: 5.5 cm x 4.3 cm multilobulated lesion with heterogeneous but near diffuse arterial enhancement, washout, and capsule formation (LI-RADS LR-5) - Margin of segments 4b and 5: 2.9 cm x 2.9 cm lesion with heterogeneous but near diffuse arterial enhancement, heterogeneous washout, and capsule formation (LI-RADS LR-5) - Segment 5: 1.4 cm x 1.2 cm lesion with heterogeneous but near diffuse arterial enhancement, washout, and capsule formation (LI-RADS LR-5) GALLBLADDER/BILE DUCTS: Layering biliary sludge the gallbladder lumen without findings of cholelithiasis or acute cholecystitis. No intrahepatic nor extrahepatic dilatation. PANCREAS: Classic duct configuration without dilation. Moderate parenchymal atrophy. 0.9 cm x 0.6 cm x 1.0 cm simple cystic lesion in the head, and 1.0 cm x 1.1 cm x 0.6 cm lesion in the body with a thin septation. SPLEEN: Mildly enlarged. 1.2 cm x 1.1 cm avidly enhancing lesion with T2 intermediate signal, most likely a hamartoma or hemangioma. ADRENAL GLANDS: Normal. KIDNEYS: Bilateral simple cysts measuring up to 2.4 cm (Bosniak category 1). GI/BOWEL: Normal course and caliber of the stomach, small bowel, and colon without obstruction. Areas of suspected edematous wall thickening in the small bowel and right hemicolon. PELVIS: Not included. PERITONEUM/RETROPERITONEUM: No abdominal lymphadenopathy. Trace free intraperitoneal fluid. VESSELS: Normal variant direct origin of the common hepatic artery from the abdominal aorta adjacent to the celiac artery. Normal variant accessory right renal artery. Fusiform aneurysmal dilation of the infrarenal abdominal aorta, measuring up to 2.4 cm x 3.0 cm. Suspected fenestrated focal dissection flap in the superior portion of the aneurysm. Moderate to severe atherosclerosis. Patent portal and hepatic veins and inferior vena cava. Dilation of the main portal vein. Paraesophageal, esophageal, gastric, and paragastric varices. Recanalization of the coronary and paraumbilical veins. SOFT TISSUES/BONES: Small fat containing umbilical hernia. No suspicious focal marrow lesions. Multilevel degenerative disc disease. MR/MR abdomen wo/w con IMPRESSION: 1. Cirrhotic liver containing three LI-RADS LR-5 lesions (definitely hepatocellular carcinoma) as above. Recommend oncologic evaluation for potential treatment. 2. Additional arterially enhancing foci scattered throughout the liver measure up to 1.3 cm, meeting criteria for LI-RADS LR-3. The most likely considerations are dysplastic nodules or small hepatocellular carcinomas. 3. No findings of abdominal metastatic disease. 4. Findings of portal hypertension include dilation of the main portal vein, multiple venous collaterals, mild splenomegaly, and trace ascites. Additionally, there is suspected portal enteropathy and colopathy. 5. Cystic lesions without worrisome features in the pancreas, measuring up to 1.2 cm x 1.1 cm x 0.6 cm and likely branch duct intraductal papillary mucinous neoplasms. Recommend follow-up with pancreas protocol MRI or CT in 2 years as below. 6. 2.4 cm x 3.0 cm fusiform aneurysm of the infrarenal abdominal aortic, suspected to contain a fenestrated focal dissection flap superiorly. Recommend follow-up imaging in 3 years as below. FINDINGS: Lower Chest: No focal consolidation. Emphysema. Organs: There is a nodular shrunken cirrhotic appearing liver. The absence of IV contrast limits evaluation for masses such as hepatocellular carcinoma. Generalized ill-defined internal hypodense nodularity may reflect multiple regenerative nodules. The segment 4B there is an ill-defined almost isodense to slightly hypodense 5.2 x 4.2 cm nodule which could be a large dysplastic nodule. There is splenomegaly with spleen measuring 15 cm cranial caudally. Gallbladder is contracted. There is either gallbladder wall edema or some pericholecystic fluid. There is 2.3 cm left renal cyst in the lateral midpole. No adrenal mass. Pancreas grossly normal. GI/Bowel: There is limited evaluation due to absence of oral contrast. Small sliding hiatal hernia noted. No obvious gastric lesions. Normal caliber small bowel showing no focal lesions. Normal appendix. Sigmoid diverticulosis. No acute process in the colon. Pelvis: Urinary bladder grossly normal. Mild prostate hypertrophy with some calcifications. No suspicious pelvic mass. Peritoneum/Retroperitoneum: No ascites. No significant lymphadenopathy. At the level of L3-L4 disc space there is fusiform dilatation of the abdominal aorta measuring 2.8 cm in AP diameter. More proximally the infrarenal abdominal aorta measures 2.0 cm in AP diameter and therefore finding does not meet criteria for aneurysm. Bones/Soft Tissues: Diffuse degenerative changes. There is right inguinal hernia containing nonobstructed ileum and fat. CT/CT abd pelvis wo no iv no oral IMPRESSION: 1. Nodular shrunken cirrhotic appearing liver with possible numerous tiny regenerative nodules. 2. Ill-defined 5.2 x 4.2 cm isodense to mildly hypodense area in the left lobe segment 4B may represent a dysplastic nodule. Further evaluation with contrast-enhanced (not Eovist) MRI is recommended. 3. Splenomegaly. Impression: Likely hepatocellular carcinoma secondary to hepatitis C in the context of known cirrhosis with prior exposure to alcoholism and hep C. He was seen by oncology and patient will recommend follow-up in clinic. Alpha-fetoprotein was ordered. He will need a biopsy outpatient (2) Near syncope Priority: Secondary Status: Resolved (3) Dizziness Priority: Secondary Status: Resolved (4) Anemia, iron deficiency Priority: Primary Status: Chronic Comments: Endoscopy 08/27/17 EGD - Grade 2 varices were found in the lower third of the esophagus -1 supervision also with no bleeding and no stigmata of recent bleedingto - stenosis was found moderate to severe - Guerrero's esophagus in the lower third -Portal hypertensive gastropathy -Erosive lesions in the second portion of the duodenum -Mild inflammation characterized by edema of the gastric antrum. Biopsies were taken with a cold forceps for histology. Colonoscopy - 15 mm polyp was found in the sigmoid colon, which was pedunculated. The polyp was removed with a heart snare with complete retrieval and resection. -Nonbleeding internal hemorrhoids, grade 2 Hemoglobin was stable during the stay. Likely anemia and thrombocytopenia from cirrhosis. Qualifiers: Iron deficiency anemia type: other iron deficiency Qualified Code(s): D50.8 - Other iron deficiency anemias (5) Diarrhea Priority: Secondary Status: Resolved Qualifiers: Diarrhea type: unspecified type Qualified Code(s): R19.7 - Diarrhea, unspecified (6) Hematochezia Priority: Primary Status: Resolved Comments: From internal hemorrhoids (7) Type II diabetes mellitus Priority: Secondary Status: Chronic Qualifiers: Diabetes mellitus assisted insulin use: without terminal gauger supervisor use Diabetes mellitus complication status: without complication Qualified Code(s): E11.9 - Type 2 diabetes mellitus without complications (8) Hyperlipidemia Priority: Secondary Status: Chronic Qualifiers: Hyperlipidemia type: mixed hyperlipidemia Qualified Code(s): E78.2 - Mixed hyperlipidemia Hospital course: Mr. Fajardo is a 71 year old male Discharge discussed with: patient - Time Spent with Patient Total time spent providing and/or coordinating discharge services: Greater than 30 minutes Specific discharge activities: Must follow up with oncology clinic - Discharge Medications Home Medications: Aspirin 81 mg PO DAILY 08/25/17 [History] Atorvastatin Calcium [Lipitor] 20 mg PO HS 08/25/17 [History] Ferrous Sulfate [Iron] 325 mg PO DAILY 08/25/17 [History] Metformin HCl [Metformin HCl ER] 500 mg PO DAILY 08/25/17 [History] Allergies/Adverse Reactions: 3 Allergy/AdvReac Type Severity Reaction Status Date / Time No Known Allergies Allergy Verified 08/26/17 06:59 Date of admission: 08/25/17 13:39 Primary care physician: Laureen Maya DO Consults: 08/25/17 16:36 Consult to Diabetes Education [CONS] Routine Comment: Reason for Consult: Diabetic Diet Education 08/25/17 16:49 Consult to Physician [CONS] Routine Consulting Provider: Jaky Robertson Reason for Consult: Unintentional Weight Loss, Diarrhea, Hematochezia (no active bleed suspected at this time, workup pending), Poor Compliance/Health Literacy Call Completed: No 08/25/17 16:52 Consult to Airborne And Air Delivery Specialist [CONS] Routine Reason for SW Consult: Poor Compliance/Health Literacy 08/25/17 16:53 Consult to Gastroenterology [CONS] Routine Consulting Provider: [facility] Reason for Consult: Unintentional Weight Loss, Diarrhea, Hematochezia. Consider colonoscopy. Call Completed: No 08/28/17 08:36 Consult to Oncology Hematology [CONS] Routine Consulting Provider: Maty Stark Reason for Consult: Hepatocellular carcinoma Call Completed: Yes Discharging clinician: Martha Nice Anticipated date of discharge: 08/28/17 - Constitutional Vitals: Temp Pulse Resp BP Pulse Ox 98.3 F 70 16 146/75 95 08/28/17 07:51 08/28/17 07:51 08/28/17 07:51 08/28/17 07:51 08/28/17 07:51 General appearance: Present: A&O X 3, no acute distress, answers questions appropriately. Absent: cooperative, pleasant Exam: Physical exam Gen: Comfortable, laying in bed, in no visible distress HEENT: Normocephalic, atraumatic. No conjunctival icterus. Moist oral mucosa. Neck: Supple Lungs: Clear to auscultation, no foreign sounds Heart: Normal S1-S2, no murmurs rubs or gallops Abdomen: Normoactive bowel sounds, no guarding rigidity or tenderness Extremities: No edema clubbing or cyanosis. Right above knee amputation Neuro: Alert oriented 3, no focal deficits Skin: No skin lesions - Patient Status Disposition: Home, Self-Care Condition: Good Functional capacity at discharge: uses cane/walker Overall status at discharge: patient is back to baseline - Discharge Instructions Follow Up With: Subhash Resendez [Other] - 09/12/17 1:00 pm (Please arrive 15 minutes early to appointment to complete paper work. Please bring photo ID and your insurance card with you to appointment.) Laureen Maya DO [Primary Care Provider] - Maty Stark MD [Partnered Physician] - Additional Instructions: Must follow up in oncology clinic - Diet and Activity Activity: resume usual activities as tolerated Diet: advance to your usual diet
[2017-08-28] MEDS: Insulin LISPRO 300 UNITS/3 ML VIAL SQ SCH (09:43)
--- NOTE | 2017-08-28 09:49 | Oncology Inp Consult Note ---
Date of Encounter: 08/28/17 Time of Encounter: 09:00 Assessment and Plan (1) Liver lesion Status: Acute Assessment and plan: Patient with cirrhosis, hepatitis C (?treatment), multiple liver lesions noted in the MRI few of which are suggestive of hepatocellular carcinoma. We will obtain further lab works and workup as necessary as an outpatient. Discussed imaging in tumor board conference, review smaller lesions that are nondiagnostic at this time. He has had a endoscopy colonoscopy that did not show any malignancy. He had braces and hemorrhoids secondary to portal hypertension. Anemia, iron deficient, we will recommend outpatient intravenous iron replacement/transfusion therapy after rechecking lab works. Plan of care was discussed with patient and house staff. - Data of Consult Requesting Physician: Aguila Asher Primary Care Provider: Laureen Maya, - Consult Narrative Reason for consult: liver lesions History of present illness: Mr. Fajardo is a 71 year old male with a medical history significant for hepatitis C, diabetes mellitus, history of cirrhosis of the liver, with hematochezia dizzy episodes and weight loss of up to 40 pounds over the last 4 months, referred for further evaluation off fine deficiency anemia by PCP. He was worked up with a stress test. Patient was hospitalized to further undergo endoscopy colonoscopy, CT imaging, he also has right lower extremity above-the- knee amputation and has difficulty with transportation, making use of seeing a [facility] transit services. Patient underwent EGD and a colonoscopy, EGD showed grade 3 esophageal varices in the lower third of esophagus, esophageal ulcer, posterior portal hypertensive gastropathy, Guerrero's esophagus in the lower third, erosions. He was also noted to have a sigmoid polyp and grade 2 hemorrhoids. Patient has mild to moderate anemia and thrombocytopenia. His ferritin levels are low. Patient feels fatigued. The he denies any pain episodes. He underwent a CT imaging of abdomen and pelvis and chest, CT chest showed reactive hilar adenopathy possibly, 1.[address] abdomen showed cirrhotic liver arterially enhancing foci, multiple meeting criteria for hepatocellular carcinoma in 3 of the lesions and other smaller liver lesions up to 1.3 cm dysplastic nodules versus hepatus adenocarcinoma to be considered. Cystic lesion in the pancreas likely intraductal papillary mucinous neoplasm. Past Med Surg Social Fam HX - Past Medical History Medical history: diabetes, hypertension - Past Surgical History Surgical History: other (Right AKA) - Social History Smoking Status: Former smoker Alcohol use: none Drug use: marijuana - Family History Mother Hx Family Cardiac Disorders: Yes Hx Family Endocrine Disorder: Yes (DM) Medications and Allergies Aspirin 81 mg PO DAILY 08/25/17 [History] Atorvastatin Calcium [Lipitor] 20 mg PO HS 08/25/17 [History] Ferrous Sulfate [Iron] 325 mg PO DAILY 08/25/17 [History] Metformin HCl [Metformin HCl ER] 500 mg PO DAILY 08/25/17 [History] 3 Allergy/AdvReac Type Severity Reaction Status Date / Time No Known Allergies Allergy Verified 08/26/17 06:59 Review of systems: as in HPI Oncology - Exam - Constitutional Vitals: Temp Pulse Resp BP Pulse Ox 98.3 F 70 16 146/75 95 08/28/17 07:51 08/28/17 07:51 08/28/17 07:51 08/28/17 07:51 08/28/17 07:51 General appearance: average body habitus - Head Head exam: Present: atraumatic, normal inspection - Eye Eye exam: Present: sclera anicteric - ENT ENT exam: Present: mucous membranes moist - Neck Neck exam: Present: full ROM, normal inspection - Respiratory Respiratory exam: Present: CTAB - Cardiovascular Cardiovascular exam: Present: +S1, +S2 - GI/Abdominal GI/Abdominal exam: Present: normal bowel sounds, soft - Extremities Exam Extremities exam: Present: normal inspection Additional comments: rt above knee amputation - Neurological Exam Neurological exam: Present: alert, CN II-XII intact, oriented X3, no focal deficits - Psychiatric Psychiatric exam: Present: normal affect Oncology - Results Labs: Short CBC 08/28/17 Range/Units 04:28 WBC 2.9 L (4.3-11.1) K/mcL Hgb 9.6 L (12.9-16.9) g/dL Hct 34.5 L (37.5-50.1) % Plt Count 87 L (140-400) K/mcL Neutrophils # 1.5 L (1.6-8.9) K/mcL BMP 08/28/17 04:28 Sodium 140 Potassium 4.0 Chloride 110 H Carbon Dioxide 25 BUN 12 Creatinine 0.68 L Glucose [address] MRI findings of abd reviewed, CT chest reviewed Consult Discharge Plan - Plan Additional Instructions: Must follow up in oncology clinic Referrals: Subhash Resendez [Other] - 09/12/17 1:00 pm (Please arrive 15 minutes early to appointment to complete paper work. Please bring photo ID and your insurance card with you to appointment.) Laureen Maya, [Primary Care Provider] - Maty Stark MD [Partnered Physician] -
[2017-08-28 11:52] VITALS: BP 120/89
--- NOTE | 2017-08-30 05:34 | Electrocardiograph Report ---
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
--- NOTE | 2017-08-30 05:35 | Electrocardiograph Report ---
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
[2017-08-31 09:28] LABS: HCV Quant Interpretation DETECTED (Not Detected)
[2017-09-02 17:41] LABS: HCV Genotype by Sequencing 1A OR 1B
== END 2017-08-28 12:29 | disposition home or self-care (01) ==
LOC: 3ANU
PROVIDERS: ADMIT Family Medicine; ATTEND Family Medicine
PROC: ENDOEBX (2017-08-27 08:50)

== ENCOUNTER 2017-11-03 06:50 | Observation (INO) ==
[2017-11-03 07:24] LABS: Basophils % 0.9 %; Eosinophils # 0.1 K/mcL (0.0-0.6); Eosinophils % 1.4 %; Hematocrit 35.8 % (37.5-50.1); Hemoglobin 11.1 g/dL (12.9-16.9); Immature Granulocytes % 0.2 % (0-4); Lymphocytes # 0.8 K/mcL (0.6-4.6); Lymphocytes % 18.2 %; Mean Corpuscular Volume 80.6 fL (83.0-100.0); Monocytes # 0.5 K/mcL (0.0-1.3); Monocytes % 10.8 %; Red Blood Count 4.44 M/mcL (4.19-5.50); Red Cell Distribution Width 18.6 % (11.5-14.5); Segmented Neutrophils % 68.5 %
[2017-11-03 07:25] LABS: Platelet Count 90 K/mcL (140-400)
[2017-11-03 07:26] LABS: Platelet Estimate Decreased (Normal)
[2017-11-03 07:31] LABS: INR 1.2; Prothrombin Time 12.6 Seconds (9.4-12.1)
[2017-11-03] MEDS ORDERED: DOXOrubicin HCL 200 MG/100 ML MLS IV SCH (08:00)
[2017-11-03] MEDS ORDERED: Heparin 1,000 UNITS/500 mL 500 ML ONE ×2 (08:30→10:19)
[2017-11-03] MEDS ORDERED: 0.9 % Sodium Chloride 500 ML ONE (08:30)
[2017-11-03] MEDS ORDERED: *HR* Midazolam HCl 2 MG/2 ML VIAL IVP ONE ×2 (08:40→09:39)
[2017-11-03] MEDS ORDERED: *HR* FentaNYL (PF) 100 MCG/2 ML VIAL IVP ONE ×2 (08:40→09:39)
--- NOTE | 2017-11-03 08:40 | Pre-Sedation Evaluation ---
Pre-sedation evaluation - Pre-sedation checklist Date of procedure: 11/03/17 Procedure: Chemo Embo Recent Vitals: Last Vital Signs Temp 98.2 F 11/03/17 08:10 Pulse 78 11/03/17 08:33 Resp 20 11/03/17 08:33 BP 144/71 11/03/17 08:33 Pulse Ox 97 11/03/17 08:33 H&P (including ROS) documented in medical record: Yes Previous reaction to sedatives/anesthetics: No Dietary Status: NPO after Midnight Airway Assessment: Patient can open mouth completely, TMJ function normal Dentition: No loose teeth or bridges, poor dentition Possible difficult airway: No ASA Classification *see protocol: CLASS II-Mild systemic disease Cardiac Registry (Cardio Only) - Functional Capacity - Clincal Frailty Scale
--- NOTE | 2017-11-03 08:40 | History & Physical Report ---
Date of Encounter: 11/03/17 Time of Encounter: 08:39 24 Hour HP Update - Instructions Instructions: If the History and Physical is less than 30 days old and was completed prior to A.M. admission and or procedure and has NOT been updated on calendar day of procedure please complete this update prior to performing procedure. - Update Patient reports changes in Medical Condition: No Changes in examination, assessment, or condition: No Changes in Medication: No Preop tests/diagnostics Reviewed: Yes Surgery Remains Indicated: Yes Consent for Planned Operative Procedure(s) Verified: Yes - Pre-Operative Checklist Preoperative Checklist Indicated: Yes Prophylactic Antibiotic Ordered: Yes Home Medications Include Beta Samuel: No Beta Samuel Taken Today (Day of Surgery): No Beta Samuel Taken Yesterday (Day Prior to Surgery): No Is VTE Prophylaxis Indicated?: NO
[2017-11-03] MEDS ORDERED: Dexamethasone 4 MG/ML VIAL IVP ONE (08:44)
[2017-11-03] MEDS ORDERED: Ondansetron 4 MG/2 ML VIAL IVP ONE (08:45)
[2017-11-03] MEDS ORDERED: 0.9 % Sodium Chloride 1,000 ML ONE ×2 (09:09→11:04)
[2017-11-03] MEDS: MetroNIDAZOLE 500 MG/100 ML 500 MG/100 ML BAG IVPB ONE ×2 (09:25→09:59)
[2017-11-03] MEDS: ceFAZolin 1,000 MG in Water for inj. (sterile) 20 ML 10 ML IVP SCH ×3 (09:26→23:28)
[2017-11-03] MEDS ORDERED: *HR* Midazolam HCl 2 MG/2 ML VIAL ONE (09:43)
--- NOTE | 2017-11-03 11:13 | IR Procedure Note ---
Date of procedure: 11/03/17 Consent Obtained: Verbal consent, Written consent Timeout: Correct patient and procedure verified, Correct site verified, Time out performed, Skin prep completed Local anesthetic: Lidocaine 1% Indications: Hepatocellular carcinoma Procedure Performed: Chemoembolization Was there an expanded duty dental assistant present: No Site/Technique: Chemoembolization performed to two hepatic masses Results/Findings: 75 mg doxorubicin delivered Estimated blood loss (cc): 10 Complications: None; Tolerated procedure well Post Procedure Treatment Plan: Admit for overnight observation Specimen: None
[2017-11-03] MEDS ORDERED: *HR* Promethazine 25 MG/ML VIAL IVP PRN (11:19)
--- NOTE | 2017-11-03 12:00 | Internal Medicine Consult Note ---
Date of Encounter: 11/03/17 Time of Encounter: 11:57 - Assessment and plan (1) Liver lesion Current Visit: Yes Status: Acute Assessment and plan: Patient has abnormal liver lesions concerning for hepatocellular carcinoma. Underwent chemoembolization by IR today. We will monitor overnight. Pain control. (2) Cirrhosis Current Visit: Yes Status: Acute Assessment and plan: Due to hepatitis C. Supportive care. Monitor vital signs. Qualifiers: Hepatic cirrhosis type: unspecified hepatic cirrhosis Ascites presence: without ascites Qualified Code(s): K74.60 - Unspecified cirrhosis of liver (3) Type II diabetes mellitus Current Visit: Yes Status: Chronic Assessment and plan: Monitor blood sugars. Sliding scale insulin. Qualifiers: Diabetes mellitus buttermaker continuous churn insulin use: without correction use Diabetes mellitus complication status: without complication Qualified Code(s): E11.9 - Type 2 diabetes mellitus without complications (4) DVT prophylaxis Current Visit: Yes Status: Acute - Time Spent With Patient Total time spent is greater than 50% in coordination of care (as documented) at patient's floor/unit and/or counseling patient: Internal Medicine - CN: HPI - Data of Consult Patient: known to practice within the last 3 years Consult date: 11/03/17 Requesting Physician: Cornell Branch - Consult Narrative Reason for consult: Medical management History of present illness: Mr. Fajardo is a 72 year old male with history of hepatitis C cirrhosis, hypertension, diabetes with recently diagnosed abnormal liver lesions concerning for hepatocellular carcinoma who underwent chemoembolization today with interventional radiology. His been placed in hospital for observation overnight and we have been asked to help manage his chronic medical conditions. Patient denies any complaints besides abdominal pain at this time. No shortness of breath. He does feel very hungry and describes weight loss recently. Past Med Surg Social Fam HX - Past Medical History Attestation: Yes The following information was validated with the patient. Source: old records reviewed Medical history: cirrhosis (Hepatitis C), diabetes, hyperlipidemia, hypertension Additional medical history: osteoarthritis,left knee, tobacco uses disorder, rib pain, hepatitis - Past Surgical History Surgical History: herniorrhaphy, knee replacement, other Additional surgical history: right shoulder replacement, rt leg amp, - Social History Smoking Status: Former smoker Alcohol use: none Drug use: marijuana - Family History Mother Hx Family Cardiac Disorders: Yes Hx Family Endocrine Disorder: Yes (DM) All systems: reviewed and no additional remarkable complaints except as stated - Constitutional Constitutional: malaise, weight loss, no anorexia, no chills - Cardiovascular Cardiovascular ROS IM: no chest pain, no dyspnea, no dyspnea on exertion, no edema - Respiratory Respiratory: no cough, no dyspnea, no hemoptysis, no dyspnea on exertion - Gastrointestinal Gastrointestinal: abdominal pain, nausea, no diarrhea, no dyspepsia, no tenesmus , no vomiting - Integumentary Integumentary IM: no rash, no jaundice - Psychiatric Psychiatric: no anxiety, no confusion - Endocrine Endocrine IM: no polyphagia, no polyuria Internal Medicine - CN: Meds Aspirin 81 mg PO DAILY 08/25/17 [History] Atorvastatin Calcium [Lipitor] 20 mg PO HS 08/25/17 [History] Ferrous Sulfate [Iron] 325 mg PO DAILY 08/25/17 [History] Metformin HCl [Metformin HCl ER] 500 mg PO DAILY 08/25/17 [History] 3 Allergy/AdvReac Type Severity Reaction Status Date / Time No Known Allergies Allergy Verified 09/05/17 08:25 Internal Medicine - CN: Exam - Constitutional Vitals: Temp Pulse Resp BP Pulse Ox 97.4 F L 79 16 138/71 95 11/03/17 11:55 11/03/17 11:55 11/03/17 11:55 11/03/17 11:55 11/03/17 11:55 General appearance IM: Present: cooperative, mild distress, A&O X 3, answers questions appropriately - Neck Neck exam general surgery: Present: full ROM. Absent: normal inspection, nuchal rigidity - Respiratory Respiratory exam: Present: CTAB. Absent: decreased breath sounds, prolonged expiratory phase, respiratory distress, wheezes - Cardiovascular Cardiovascular exam IM: Present: RRR, +S1, +S2 - GI/Abdominal GI/Abdominal exam IM: Present: normal bowel sounds, soft, tenderness (Right groin region) - Extremities Exam Extremities exam IM: Absent: pedal edema, tenderness Additional comments: Status post right BKA - Neurological Exam Neurological exam: Present: alert, oriented X3, strengths equal and symetr throughout Internal Medicine - CN: Reslt - Labs CBC & Chem 7: 11/03/17 07:06 Labs: Short CBC 11/03/17 Range/Units 07:06 WBC 4.4 (4.3-11.1) K/mcL Hgb 11.1 L (12.9-16.9) g/dL Hct 35.8 L (37.5-50.1) % Plt Count 90 L (140-400) K/mcL Neutrophils # 3.0 (1.6-8.9) K/mcL - ABG Interpretation ABG results: PT/INR, D-dimer PT 12.6 Seconds (9.4-12.1) H 11/03/17 07:06 Consult Discharge Plan - Plan Referrals: Laureen Maya DO [Primary Care Provider] -
[2017-11-03] MEDS ORDERED: Dextrose Gel 15 GM/37.5 ML TUBE PO PRN ×2 (12:29)
[2017-11-03] MEDS ORDERED: *HR* Dextrose 50 % in Water (Syg) 50 ML SYRINGE IVP PRN (12:29)
[2017-11-03] MEDS ORDERED: D5% in Water 1,000 ML IVC PRN (12:29)
[2017-11-03] MEDS ORDERED: *HR* FentaNYL (PF) 100 MCG/2 ML VIAL IVP PRN (12:29)
[2017-11-03] MEDS: *HR* OxyCODONE Immed Rel 5 MG TABLET PO PRN ×3 (12:30→21:17)
[2017-11-03] MEDS: Insulin LISPRO 300 UNITS/3 ML VIAL SQ SCH ×2 (14:38→17:20)
[2017-11-03] MEDS: Insulin DETEMIR 100 UNIT/ML X5UNITS SQ SCH ×2 (14:39→20:54)
[2017-11-03] MEDS ORDERED: Insulin LISPRO 300 UNITS/3 ML VIAL SQ SCH ×3 (16:30→21:00)
[2017-11-03] MEDS ORDERED: Dexamethasone 4 MG/ML VIAL IVP SCH (17:00)
[2017-11-03] MEDS: MetroNIDAZOLE 500 MG/100 ML 500 MG/100 ML BAG IVPB SCH (20:54)
[2017-11-04] MEDS: *HR* OxyCODONE Immed Rel 5 MG TABLET PO PRN ×3 (01:25→09:34)
[2017-11-04] MEDS: MetroNIDAZOLE 500 MG/100 ML 500 MG/100 ML BAG IVPB SCH (05:39)
[2017-11-04] MEDS: ceFAZolin 1,000 MG in Water for inj. (sterile) 20 ML 10 ML IVP SCH (08:22)
[2017-11-04] MEDS: Insulin LISPRO 300 UNITS/3 ML VIAL SQ SCH ×2 (08:23→12:18)
[2017-11-04] MEDS ORDERED: Aspirin 81 MG TAB.CHEW PO SCH (09:00)
[2017-11-04] MEDS: Insulin DETEMIR 100 UNIT/ML X5UNITS SQ SCH (09:31)
[2017-11-04 12:00] VITALS: BP 132/51
--- NOTE | 2017-11-04 12:48 | Discharge Summary ---
- NOTES TO OUTPATIENT PROVIDER Notes to Outpatient Provider: s/p chemoembolization of hepatic lesions; Date of Encounter: 11/04/17 Time of Encounter: 12:46 - Discharge Diagnosis (1) Liver lesion Priority: Primary Status: Acute (2) Type II diabetes mellitus Priority: Secondary Status: Chronic Qualifiers: Diabetes mellitus residential insulin use: without buttermaker helper use Diabetes mellitus complication status: without complication Qualified Code(s): E11.9 - Type 2 diabetes mellitus without complications (3) Cirrhosis Priority: Secondary Status: Chronic Qualifiers: Hepatic cirrhosis type: unspecified hepatic cirrhosis Ascites presence: without ascites Qualified Code(s): K74.60 - Unspecified cirrhosis of liver (4) Essential hypertension Priority: Secondary Status: Chronic (5) Hyperlipidemia Priority: Secondary Status: Chronic Qualifiers: Hyperlipidemia type: mixed hyperlipidemia Qualified Code(s): E78.2 - Mixed hyperlipidemia Hospital course: Mr. Fajardo is a 72 year old male with the above medical problems, was admitted from interventional radiology after undergoing chemoembolization for liver lesions suspected to be malignancy. Patient was monitored overnight for hemodynamic stability and pain control, currently stable for discharge. He was recommended to follow up with oncology, however he states he is not interested. He is noted to have uncontrolled blood sugars at admission, he reports he has been on insulin started by his PCP but could not afford it and stopped taking the medication. He would like to follow-up with his PCP and discuss resuming insulin. He is aware of the risks of hyperglycemia. Patient is in a great hurry to be discharged home. Discharge discussed with: patient, nurse - Time Spent with Patient Total time spent providing and/or coordinating discharge services: Greater than 30 minutes (40 min) - Discharge Medications Home Medications: Aspirin 81 mg PO DAILY 08/25/17 [History] Atorvastatin Calcium [Lipitor] 20 mg PO HS 08/25/17 [History] Ferrous Sulfate [Iron] 325 mg PO DAILY 08/25/17 [History] Metformin HCl [Metformin HCl ER] 500 mg PO DAILY 08/25/17 [History] Allergies/Adverse Reactions: 3 Allergy/AdvReac Type Severity Reaction Status Date / Time No Known Allergies Allergy Verified 09/05/17 08:25 Date of admission: 11/03/17 11:58 Primary care physician: Laureen Maya DO Consults: 11/03/17 12:51 Consult to Hospitalist [CONS] Routine Consulting Provider: Hospitalist Kenny Reason for Consult: Admission s/p chemoembolization for observation and pain control Time Notified: 11:30 Call Completed: Yes Discharging clinician: Abril Melgoza Anticipated date of discharge: 11/04/17 - Constitutional Vitals: Temp Pulse Resp BP Pulse Ox 97.6 F 76 16 132/51 97 11/04/17 11:53 11/04/17 11:53 11/04/17 11:53 11/04/17 11:53 11/04/17 11:53 General appearance: Present: cooperative, A&O X 3, answers questions appropriately - Cardiovascular Cardiovascular exam: Present: RRR, +S1, +S2. Absent: diastolic murmur, gallop, rubs, systolic murmur - Patient Status Disposition: Home, Self-Care Condition: Good Functional capacity at discharge: uses cane/walker Overall status at discharge: patient is progressing back to baseline - Discharge Instructions Instructions: Chemoembolization Cancer Therapy (DC) Follow Up With: Laureen Maya DO [Primary Care Provider] - Additional Instructions: F/up with PCP in 1 week - Diet and Activity Activity: resume usual activities as tolerated Diet: diabetic diet, low fat, low cholesterol, low salt diet
--- NOTE | 2017-11-04 13:28 | IR Consult Note ---
Date of Encounter: 11/04/17 Time of Encounter: 10:00 Assessment and Plan (1) Liver lesion Status: Acute 72 yo gentleman s/p chemoembolization for multifocal HCC, POD #1. Patient c/o fatigue and pain at groin site. R MANAGER ADMINISTRATIVE access site appears intact, without significant hematoma. From an IR perspective, the patient is okay for discharge. Physicians: Shakira Olson MD Consult Comment: Thank you for the consult. Call [facility] with questions or concerns. Past Med Surg Social Fam HX - Past Medical History Medical history: cirrhosis (Hepatitis C), diabetes, hyperlipidemia, hypertension Additional medical history: osteoarthritis,left knee, tobacco uses disorder, rib pain, hepatitis - Past Surgical History Surgical History: herniorrhaphy, knee replacement, other Additional surgical history: right shoulder replacement, rt leg amp, - Social History Smoking Status: Former smoker Alcohol use: none Drug use: marijuana - Family History Mother Hx Family Cardiac Disorders: Yes Hx Family Endocrine Disorder: Yes (DM) Medications and Allergies Aspirin 81 mg PO DAILY 08/25/17 [History] Atorvastatin Calcium [Lipitor] 20 mg PO HS 08/25/17 [History] Ferrous Sulfate [Iron] 325 mg PO DAILY 08/25/17 [History] Metformin HCl [Metformin HCl ER] 500 mg PO DAILY 08/25/17 [History] 3 Allergy/AdvReac Type Severity Reaction Status Date / Time No Known Allergies Allergy Verified 09/05/17 08:25 Exam Vital Signs, Last 4 Hours Temp Pulse Resp BP Pulse Ox 11/04/17 11:53 97.6 F 76 16 132/51 97 Results Reviewed 11/03/17 07:06 Lab Results 11/03/17 11/03/17 07:06 07:06 WBC 4.4 RBC 4.44 Hgb 11.1 L Hct 35.8 L MCV 80.6 L MCH 25.0 L MCHC 31.0 L RDW 18.6 H Plt Count 90 L MPV TNP Neutrophils # 3.0 Lymphocytes # 0.8 Monocytes # 0.5 Eosinophils # 0.1 Basophils # 0.0 PT 12.6 H INR 1.2 Consult Discharge Plan - Plan Instructions: Chemoembolization Cancer Therapy (DC) Additional Instructions: F/up with PCP in 1 week Referrals: Laureen Maya DO [Primary Care Provider] -
== END 2017-11-04 13:03 | disposition home or self-care (01) ==
LOC: INTRAD 06:50 → 3ANU 06:50
PROVIDERS: ADMIT Internal Medicine; ATTEND Internal Medicine